=== PATIENT | female | born 1970 | race Caucasian/White ===

== ENCOUNTER → 2022-07-07 | Day surgery (SDC) | payer OTHER ==
[2022-07-07] MEDS: Brimonidine 0.2% Ophth Soln 5 ML Bottle EYELF SCH ×2 (13:48→15:16)
[2022-07-07] MEDS: Phenylephrine 2.5% Ophth Soln 2 ML Bot EYELF SCH ×2 (13:50→13:56)
[2022-07-07] MEDS: Tropicamide 1% Ophth Soln 15 ML Bottle EYELF SCH ×2 (13:53→14:00)
== END ==
LOC: JD.SDS 13:51
PROVIDERS: ATTEND Ophthalmology
DX: H26.492 Other secondary cataract, left eye (principal); H35.372 Puckering of macula, left eye; H35.342 Macular cyst, hole, or pseudohole, left eye; H16.223 Keratoconjunctivitis sicca, not specified as Sjogren's, bilateral; H43.822 Vitreomacular adhesion, left eye
CPT/HCPCS: 66821; A9270